=== PATIENT | male | born 1930 | race Caucasian/White ===

== ENCOUNTER 2021-08-09 05:38 | Emergency (ER) | payer BC, MEDICARE ==
[~2021-08-09] VITALS: Ht 180.3 cm; Wt 90.7 kg
[2021-08-09] MEDS ORDERED: LIDOCAINE 2% JEL UROJET 10 ML MM ONE (06:03)
--- NOTE | 2021-08-09 06:08 | NUR ---
WINDOWS ADMINISTRATOR AT PT'S BEDSIDE
--- NOTE | 2021-08-09 06:12 | NUR ---
LAC #20G S/L PATENT AND INTACT.
--- NOTE | 2021-08-09 06:25 | NUR ---
F/C UNPLUGGED DRIANING YELLOW URINE. 250 CC OUTPUT
--- NOTE | 2021-08-09 06:25 | NUR ---
URINE COLLECTED AND SENT TO LAB
[2021-08-09 06:31] LABS: BASOPHILS # (AUTO) 0.1 K/uL (0.0-0.2); BASOPHILS % (AUTO) 0.7 % (0.0-2.0); EOSINOPHILS % (AUTO) 3.7 % (0.0-6.0); HEMATOCRIT 44 % (39-51); HEMOGLOBIN 14.5 g/dL (13.5-17.5); LYMPHOCYTES # (AUTO) 1.1 K/uL (0.8-4.8); LYMPHOCYTES % (AUTO) 11.8 % (20.0-44.0); MEAN CORPUSCULAR HGB CONC 33 g/dl (31.0-36.0); MEAN CORPUSCULAR VOLUME 92 fL (80-96); MONOCYTES # (AUTO) 0.7 K/uL (0.1-1.30); NEUTROPHILS # (AUTO) 7.4 K/uL (1.8-8.9); NEUTROPHILS % (AUTO) 76.8 % (43.0-81.0); PLATELET COUNT (AUTO) 135 K/uL (150-450); RED BLOOD CELL COUNT(AUTO) 4.73 MIL/uL (4.5-6.0); WHITE BLOOD COUNT (AUTO) 9.6 K/uL (4.3-11.0)
[2021-08-09 07:14] LABS: BILIRUBIN,URINE NEGATIVE (NEGATIVE); COLOR,URINE YELLOW (YELLOW); LEUKOCYTE ESTERASE ,URINE MODERATE (NEGATIVE); NITRITE, URINE POSITIVE (NEGATIVE); PROTEIN,URINE NEGATIVE (NEGATIVE); UGLUCOSE NEGATIVE (NEGATIVE); UROBILINOGEN,URINE 0.2 EU/dL (0.2)
[2021-08-09] MEDS ORDERED: TIMO5SOL11 LEFTEYE (07:48)
[2021-08-09] MEDS ORDERED: ATOR10TA PO (07:48)
[2021-08-09] MEDS ORDERED: ASPI-1420 PO (07:48)
[2021-08-09] MEDS ORDERED: QUIN20TA18 PO (07:48)
[2021-08-09 08:18] LABS: BACTERIA,URINE Many /HPF (None Seen); SQUAMOUS EPITHELIAL CELL,UR Rare /HPF (None Seen)
[2021-08-09 08:22] LABS: CALCIUM, SERUM 9.9 mg/dL (8.5-10.1); CARBON DIOXIDE 23 mmol/L (21-32); CHLORIDE 104 mmol/L (98-107); CREATININE 1.1 mg/dL (0.6-1.3); GLUCOSE 126 mg/dL (74-106); POTASSIUM 4.1 mmol/L (3.5-5.1); SODIUM SERUM 139 mmol/L (136-145); UREA NITROGEN, BLOOD 19 mg/dL (7-18)
[2021-08-09 08:30] LABS: ALANINE AMINOTRANSFERASE 21 U/L (12-78); ALBUMIN 3.7 g/dL (3.4-5.0); ALKALINE PHOSPHATASE 101 U/L (46-116); ASPARTATE AMINOTRANSFERASE 18 U/L (15-37); BILIRUBIN,DIRECT 0.2 mg/dL (0.0-0.2); BILIRUBIN,TOTAL 0.5 mg/dL (0.2-1.0); TOTAL PROTEIN, SERUM 8.2 g/dL (6.4-8.2)
[2021-08-09] MEDS: PIPERACILLIN /TAZOBACTAM 3.375 G in IV D5W 50 ML IV ONE (08:40)
--- NOTE | 2021-08-09 09:23 | NUR ---
DR CALDWELL AT BEDSIDE TALKING TO PT AND CAREGIVER.
[2021-08-09] MEDS ORDERED: CIPR-262 PO (09:33)
--- NOTE | 2021-08-09 09:50 | NUR ---
IV removed. Catheter intact and site benign. Pressure and 4x4 applied to site. No bleeding noted.Patient discharged to home in stable condition. Written and verbal after care instructions given. Patient verbalizes understanding of instruction.
[2021-08-09 10:00] VITALS: BP 168/94
== END 2021-08-09 10:00 | disposition home or self-care (01) ==
LOC: ER 05:40
DX: R33.9 Retention of urine, unspecified (principal); N39.0 Urinary tract infection, site not specified; Z20.822 Contact with and (suspected) exposure to COVID-19; R94.31 Abnormal electrocardiogram [ECG] [EKG]; Z79.82 Long term (current) use of aspirin; Z79.899 Other long term (current) drug therapy; I10 Essential (primary) hypertension; R91.8 Other nonspecific abnormal finding of lung field
CPT/HCPCS: 36415; 51701; 71045; 80048; 80076; 81001; 83605; 84145; 84484; 85025; 85730; 87040 ×2; 87077; 87086; 87186; 87426; 93005; 96365; 99285; J2543; J7060; C9803; J3490